=== PATIENT | male | born 1970 | race Caucasian/White ===

== ENCOUNTER 2016-12-17 16:32 | Inpatient (IN) | payer OTHER ==
[~2016-12-17] VITALS: Ht 167.6 cm; Wt 72.6 kg
--- NOTE | 2016-12-17 16:42 | NUR ---
PT BIBRA FROM HOME TO ER BED . PER REPORT SYNCOPE WHILE WATCHING TV W/ SEIZURE LIKE ACTIVITY FOR FEW SECONDS PER . PT AWAKE SENIOR SALES DIRECTOR. APPEARS ANXIOUS. C/O CHEST PAIN. TELE READS PROBABLE A FIB. WAS GIVEN ASPIRIN AND NITRO SENIOR SALES DIRECTOR. PLACED ON MONITOR. AWAITINGMD EVAL.
--- NOTE | 2016-12-17 16:44 | NUR ---
DR DANG AT BEDSIDE FOR EVAL.
[2016-12-17 16:58] LABS: BASOPHILS # (AUTO) 0.1 /CMM (0.0-0.2); BASOPHILS % (AUTO) 1.2 % (0.0-2.0); EOSINOPHILS # (AUTO) 0.3 /CMM (0.0-0.7); EOSINOPHILS % (AUTO) 3.9 % (0.0-6.0); HEMATOCRIT 43 % (39-51); HEMOGLOBIN 14.7 g/dL (13.5-17.5); LYMPHOCYTES # (AUTO) 2.3 /CMM (0.8-4.8); LYMPHOCYTES % (AUTO) 26.4 % (20.0-44.0); MEAN CORPUSCULAR HEMOGLOBIN 31 PG (26.0-33.0); MEAN CORPUSCULAR HGB CONC 34 g/dl (31.0-36.0); MEAN CORPUSCULAR VOLUME 91 fL (80-96); MONOCYTES # (AUTO) 0.4 /CMM (0.1-1.30); MONOCYTES % (AUTO) 4.9 % (2.0-12.0); NEUTROPHILS # (AUTO) 5.8 /CMM (1.8-8.9); NEUTROPHILS % (AUTO) 63.6 % (43.0-81.0); PLATELET COUNT (AUTO) 154 /CMM (150-450); RDW COEFFICIENT OF VARIATION 11.9 (11.5-15.0); RED BLOOD CELL COUNT(AUTO) 4.76 MIL/uL (4.5-6.0); WHITE BLOOD COUNT (AUTO) 8.9 K/uL (4.3-11.0)
[2016-12-17] MEDS ORDERED: IV NS 0.9% 500 ML BAG IV ONE (17:00)
[2016-12-17] MEDS ORDERED: IV NS 0.9% 500 ML IV ONE (17:06)
[2016-12-17] MEDS ORDERED: IV SET PRIMARY 1 EA INFUS.SET MC ONE (17:06)
--- NOTE | 2016-12-17 17:06 | NUR ---
CALLED NURSING [facility] [employer] [employer] EBUS[employer] OPERATIONS - EXPECTING CALL BACK
[2016-12-17 17:09] LABS: CALCIUM, SERUM 7.8 mg/dL (8.5-10.1); CARBON DIOXIDE 26 mmol/L (21-32); CHLORIDE 103 mmol/L (98-107); GFR 80 mL/min (>60); GLUCOSE 175 mg/dL (74-106); POTASSIUM 3.9 mmol/L (3.5-5.1); SODIUM SERUM 135 mmol/L (136-145); UREA NITROGEN, BLOOD 11 mg/dL (7-18)
--- NOTE | 2016-12-17 17:12 | NUR ---
RADIOLOGY AT BEDSIDE FOR CHEST XRAY.
[2016-12-17 17:13] LABS: INR 0.95 (0.87-1.13); PROTHROMBIN TIME 9.9 SECS (9.5-12.7)
[2016-12-17 17:17] LABS: TROPONIN I < 0.017 ng/mL (0.00-0.056)
[2016-12-17 17:24] LABS: ALANINE AMINOTRANSFERASE 43 U/L (12-78); ALBUMIN 3.7 g/dL (3.4-5.0); ALKALINE PHOSPHATASE 59 U/L (46-116); ASPARTATE AMINOTRANSFERASE 18 U/L (15-37); BILIRUBIN,DIRECT 0.1 mg/dL (0.0-0.2); BILIRUBIN,TOTAL 0.3 mg/dL (0.2-1.0); TOTAL PROTEIN, SERUM 6.2 g/dL (6.4-8.2)
[2016-12-17] MEDS ORDERED: IOHEXOL-350 100 ML VIAL IV ONE (17:33)
[2016-12-17] MEDS ORDERED: ALPR0.25 PO (18:56)
[2016-12-17] MEDS ORDERED: ATOR20TA PO (18:56)
[2016-12-17] MEDS ORDERED: LISI-603 PO (18:56)
[2016-12-17 19:00] VITALS: BP 123/82
--- NOTE | 2016-12-17 19:03 | NUR ---
PAGED MALTED MILK MIXER FOR PANEL CARLOS JOYA NP
--- NOTE | 2016-12-17 19:24 | NUR ---
REPAGED STRIP MILL OPERATOR FOR PANEL CARLOS JOYA NP
--- NOTE | 2016-12-17 19:48 | NUR ---
REPORT GIVEN TO JAN. MULLER AWAITING TRANSFER TO FLOOR.
--- NOTE | 2016-12-17 19:50 | NUR ---
RECEIVED REPORT FROM TIN ELIA, AWAITING ARRIVAL OF THE PATIENT
[2016-12-17 20:00] VITALS: BP 123/82
--- NOTE | 2016-12-17 20:00 | NUR ---
TOLL TEST WORKER INITIAL NOTES RECEIVED PT IN [facility], PT IS A/OX4, WITH IN BEDSIDE. ABLE TO MAKE NEEDS KNOW. NO COMPLAINS OF PAIN, NO ACUTE DISTRESS NOTED. ON ROOM AIR, TOLERATING IT WELL. ON TELE MONITOR AFIB 120, ASYMPTOMATIC. BODY CHECKED DONE, SKIN IS CLEAN AND INTACT, NO SKIN ISSUES. IV 18G ON RIGHT ANTECUBITAL, FLUSHED AND PATENT. ABLE TO AMBULATE WITH STEADY GAIT. ORIENTED PATIENT WITH THE ROOM, AND THE USE OF CALL LIGHT. BED IN LOWEST POSITION, CALL LIGHT WITHIN REACH.
[2016-12-17] MEDS ORDERED: ALPRAZOLAM 0.25 MG TABLET PO PRN (20:30)
[2016-12-17] MEDS ORDERED: MAG HYDROX/AL HYDROX/SIMETH 30 ML UDC PO PRN (20:30)
[2016-12-17] MEDS ORDERED: ONDANSETRON HCL/PF 4 MG/2 ML VIAL IVP PRN (20:30)
[2016-12-17] MEDS ORDERED: ACETAMINOPHEN 325 MG TABLET PO PRN (20:30)
[2016-12-17] MEDS ORDERED: Z GUARD REMEDY 2 OZ OINT TP PRN (20:30)
[2016-12-17] MEDS ORDERED: ZOLPIDEM TARTRATE 5 MG TABLET PO PRN (20:30)
[2016-12-17] MEDS ORDERED: ENOXAPARIN SODIUM 40 MG/0.4 ML DISP.SYRIN SQ SCH (20:30)
[2016-12-17] MEDS ORDERED: HYDROCODONE/APAP 5/325MG 1 EACH TABLET PO PRN (20:30)
[2016-12-17] MEDS ORDERED: MAGNESIUM HYDROXIDE 30 ML UDC PO PRN (20:30)
[2016-12-17] MEDS ORDERED: IV SET PRIMARY PUMP SET 1 EA INFUS.SET MC ONE (20:41)
[2016-12-17] MEDS ORDERED: ENOXAPARIN SODIUM 40 MG/0.4 ML DISP.SYRIN SQ ONE (20:41)
[2016-12-17] MEDS ORDERED: IV NS 0.9% 1,000 ML ONE (20:42)
[2016-12-17] MEDS: IV NS 0.9% 1,000 ML IV PRN (20:49)
[2016-12-17] MEDS ORDERED: ALPRAZOLAM 0.25 MG TABLET ONE (22:05)
[2016-12-18] VITALS (7 sets, daily range): BP systolic 103–124; BP diastolic 65–76
[2016-12-18 06:44] LABS: BASOPHILS % (AUTO) 0.6 % (0.0-2.0); EOSINOPHILS # (AUTO) 0.4 /CMM (0.0-0.7); EOSINOPHILS % (AUTO) 4.5 % (0.0-6.0); HEMATOCRIT 47 % (39-51); LYMPHOCYTES # (AUTO) 1.9 /CMM (0.8-4.8); LYMPHOCYTES % (AUTO) 24.1 % (20.0-44.0); MEAN CORPUSCULAR HEMOGLOBIN 31 PG (26.0-33.0); MEAN CORPUSCULAR HGB CONC 34 g/dl (31.0-36.0); MEAN CORPUSCULAR VOLUME 92 fL (80-96); MONOCYTES # (AUTO) 0.6 /CMM (0.1-1.30); MONOCYTES % (AUTO) 7.1 % (2.0-12.0); NEUTROPHILS # (AUTO) 5.1 /CMM (1.8-8.9); NEUTROPHILS % (AUTO) 63.7 % (43.0-81.0); PLATELET COUNT (AUTO) 180 /CMM (150-450); RDW COEFFICIENT OF VARIATION 12.8 (11.5-15.0); RED BLOOD CELL COUNT(AUTO) 5.11 MIL/uL (4.5-6.0); WHITE BLOOD COUNT (AUTO) 8.1 K/uL (4.3-11.0)
[2016-12-18 07:00] LABS: THYROID STIMULATING HORMONE 1.722 uIU/mL (0.358-3.74)
[2016-12-18 07:15] LABS: CALCIUM, SERUM 8.1 mg/dL (8.5-10.1); CREATININE 0.8 mg/dL (0.6-1.3); MAGNESIUM 1.8 mg/dL (1.8-2.4); PHOSPHORUS 2.9 mg/dL (2.5-4.9); POTASSIUM 4.4 mmol/L (3.5-5.1)
--- NOTE | 2016-12-18 07:17 | NUR ---
LOCK OPERATOR CLOSING NOTES NO SIGNIFICANT CHANGE OVERNIGHT, DENIES OF PAIN. ON ROOM AIR, TOLERATING IT WELL, NO RESPIRATORY DISTRESS NOTED. ON TELE MONITOR UNCONTROLLED AFIB 120, ASYMPTOMATIC. . IV 18G ON RIGHT ANTECUBITAL, ON NS IVF. ABLE TO AMBULATE WITH STEADY GAIT. ALL SAFETY MEASURES MAINTAINED. BED IN LOWEST POSITION, CALL LIGHT WITHIN REACH, ENDORSED TO THE AM NURSE FOR CONTINUATION OF CARE.
--- NOTE | 2016-12-18 07:20 | NUR ---
RN INITIAL NOTES RECEIVED PT IN BED, AWAKE, ABLE TO MAKE NEEDS KNOWN, PT IS ON RA, SATING WELL, NO S/S OF RESP. DISTRESS OR SOB AT THIS TIME, PT IS ON TELE MONITOR SHOWING UNCONTROLLED A FIB 120'S, PT HAS LAC #18G, C/D/I/PATENT, FLUSHING WELL, RUNNING NS @ 75ML/HR, NO S/S OF INFECTION/ INFILTRATION NOTED AT THIS TIME, ALL SAFETY MEASURES IN PLACE AT ALL TIMES, CALL LIGHT WITHIN EASY REACH, WILL MONITOR PT CLOSELY FOR CHANGES
[2016-12-18] MEDS ORDERED: ALPRAZOLAM 0.25 MG TABLET PO PRN (08:19)
[2016-12-18] MEDS ORDERED: LISINOPRIL (20MG) 20 MG TABLET PO SCH (09:00)
[2016-12-18] MEDS ORDERED: DILTIAZEM HCL CD 240 MG PO SCH (09:00)
[2016-12-18] MEDS: ASPIRIN 325 MG TABLET PO SCH (09:37)
[2016-12-18] MEDS: IV NS 0.9% 1,000 ML IV PRN ×2 (09:38→23:51)
[2016-12-18] MEDS ORDERED: DILTIAZEM HCL CD 120 MG PO SCH ×2 (09:42→10:00)
[2016-12-18] MEDS ORDERED: DILTIAZEM HCL IV 125 MG in IV D5W 100 ML IV PRN ×5 (12:00→13:00)
[2016-12-18] MEDS ORDERED: DILTIAZEM HCL 50 MG IV IV ONE (12:00)
[2016-12-18] MEDS ORDERED: IV SET PRIMARY PUMP SET 1 EA INFUS.SET MC ONE (12:17)
--- NOTE | 2016-12-18 17:36 | NUR ---
RN NOTES PT CONVERTED TO SR AWARE, DRIP D/C
[2016-12-18] MEDS: DILTIAZEM HCL 30 MG TABLET PO SCH ×2 (17:49→23:32)
--- NOTE | 2016-12-18 18:50 | NUR ---
RN CLOSING NOTES PT REMAINED STABLE DURING SHIFT, ALL MEDICATIONS GIVEN, ALL ORDERS CARRIED OUT, ALL TREATMENT CARRIED OUT, IV C/D/I/PATENT, ALL TURNED AND REPOSITIONED RUNNING FLUIDS ORDERED, PT KEPT CLEAN AND DRY, WILL GIVE REPORT TO PM RN FOR ZULEIMA
--- NOTE | 2016-12-18 20:00 | NUR ---
RN NOTES RECEIVED PX AWAKE, ALERT, ORIENTED X 3, ON ROOM AIR; PIV'S CHECKED, FLUSED, PATENT AND INTACT; PX MOVES BY SELF IN BED INDEPENDENTLY; NSR ON MONITOR; PX DENIED PAIN, SOB, N/V, DIZZINESS; DISCUSSED PLAN OF CARE; CALL LIGHT WITHIN REACH.
[2016-12-18] MEDS ORDERED: ENOXAPARIN SODIUM 40 MG/0.4 ML DISP.SYRIN SQ SCH (21:00)
[2016-12-18] MEDS ORDERED: ATORVASTATIN 10 MG TABLET PO SCH (22:00)
[2016-12-19] VITALS: BP 98/63
--- NOTE | 2016-12-19 00:18 | NUR ---
RN NOTES PX CONDITION UNCHANGED; SINUR RHYTHM ON THE MONITOR; DENIED PAIN, SOB, CHEST PAIN, DIZZINESS OR FEELING ANXIOUS; CALL LIGHT WITHIN REACH.
[2016-12-19 02:05] LABS: APPEARANCE,URINE CLEAR (CLEAR); BILIRUBIN,URINE NEGATIVE (NEGATIVE); BLOOD, URINE NEGATIVE Ery/uL (NEGATIVE); COLOR,URINE YELLOW (YELLOW); KETONES,URINE NEGATIVE (NEGATIVE); LEUKOCYTE ESTERASE ,URINE NEGATIVE (NEGATIVE); NITRITE, URINE NEGATIVE (NEGATIVE); PH,URINE 5.5 (5.0-8.0); PROTEIN,URINE NEGATIVE (NEGATIVE); UGLUCOSE NEGATIVE (NEGATIVE); UROBILINOGEN,URINE 0.2 EU/dL (0.2)
[2016-12-19 02:13] LABS: PHENCYCLIDINE SCREEN,URINE NEGATIVE (NEGATIVE)
[2016-12-19 02:14] LABS: CANNABINOID, URINE POSITIVE (NEGATIVE)
[2016-12-19 04:00] VITALS: BP 107/73
--- NOTE | 2016-12-19 04:05 | NUR ---
RN NOTES DENIED PAIN, SOB, N/V, CHEST PAIN, ANXIETY; SINUR RHYTHM ON MONITOR.
[2016-12-19] MEDS: DILTIAZEM HCL 30 MG TABLET PO SCH (06:15)
--- NOTE | 2016-12-19 06:17 | NUR ---
RN NOTES CONDITION AND NEURO STATUS UNCHANGED; NSR ON MONITOR; PX DENIED CHEST PAIN, PALPITATIONS, SOB, DIZZINESS,ANXIETY; REFUSED AM CARE; PIV'S STILL PATENT AND INTACT; NO SKIN BREAKDOWN; WILL ENDORSE TO NEXT RN.
--- NOTE | 2016-12-19 07:30 | NUR ---
PARTS ADMINISTRATOR RECEIVED PT IN BED, AX X4 NO SEIZURES DURING DIRECTOR OF OUTSIDE SALES, PT DENIES OF ANY CHEST PAIN SR ON TELE HR WNL, PT LABS WNL, IV ACCESS PATENT PT IS ON RA WILL CONTINUE TO MONITOR, CALL LIGHT W/ IN REACH.
[2016-12-19 08:00] VITALS: BP 116/80
[2016-12-19] MEDS: ASPIRIN 325 MG TABLET PO SCH (09:47)
[2016-12-19 12:00] VITALS: BP 120/78
[2016-12-19] MEDS ORDERED: DILTIAZEM HCL CD 120 MG PO SCH (12:00)
[2016-12-19] MEDS ORDERED: Aspirin PO (12:17)
[2016-12-19] MEDS ORDERED: DILT120C87 PO (12:17)
[2016-12-19 12:44] VITALS: BP 120/78
--- NOTE | 2016-12-19 15:51 | NUR ---
LENDING ACTIVITIES SUPERVISOR PT DC LEFT HOME EXIT CARE DONE, TEACHING DONE PT HAS GOOD UNDERSTANDING OF CARE AND TO FOLLOW UP WITH PACKAGE LIFT OPERATOR 1-2 WEEKS. PRESCRIPTION GIVEN PT LEFT WITH .
== END 2016-12-19 15:52 | disposition home or self-care (01) | DRG 880 ==
LOC: ER 16:33 → TELE1 18:45 → TELE-TD 12-18 11:59 → TELE1 12-19 10:50
PROVIDERS: ADMIT Contractor; ATTEND Contractor
DX: F41.9 Anxiety disorder, unspecified (principal); J98.11 Atelectasis; R07.9 Chest pain, unspecified; R55 Syncope and collapse; I10 Essential (primary) hypertension; E78.5 Hyperlipidemia, unspecified; I48.0 Paroxysmal atrial fibrillation
CPT/HCPCS: 36415; 70450-TC; 71010-TC; 80048-TC; 80061-TC; 80076-TC; 80305; 81000-TC; 83735-TC; 84100-TC; 84443-TC; 84484-TC; 85025-TC; 85730-TC; 86850-TC; 87081-TC; 93307-TC; 95819-TC; A4606; A6403; J1650; J3490; J7030; J7040; J7060; Q9967; Z7610